=== PATIENT | female | born 1995 | race Asian ===

== ENCOUNTER 2016-12-15 18:07 | Emergency (ER) | payer BC, OTHER ==
[2016-12-15] MEDS ORDERED: Sodium Chloride 0.9% 1,000 ML IV ONE (18:56)
--- NOTE | 2016-12-15 19:01 | ED Physician Chart ---
Chief Complaint/HPI - Patient Information Date Seen:: 12/15/16 Time Seen:: 18:57 Chief Complaint:: cough History of Present Illness:: pt prefers name "JOSE DANIEL" pt from [place]..due to start college today at [employer]..anxious. had a cough all nt last nt w some yellow mucous assoc. coughs to point of vomit paroxysms. no abd pain. chest wall muscles sore from cough. no asthma hx. no recent prolonged travel. no leg edema or pain. pos clear rhinitis. no fever. 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 no other ysabel pmh. Allergies:: Allergies Allergy/AdvReac Type Severity Reaction Status Date / Time Penicillins [PCN] Allergy Verified 12/15/16 18:28 Vitals:: Vital Signs - 8 hr 12/15/16 18:20 Temp 97.6 F HR 123 RR 16 BP 106/73 O2 Sat % 95 Historian:: Patient Review of Systems - Review of Systems General/Constitutional: No fever, No chills, No weight loss, No weakness, No diaphoresis, No edema, No loss of appetite Skin: No skin lesions, No rash, No bruising Head: No headache, No light-headedness Eyes: No loss of vision, No pain, No diplopia ENT: No earache, Nasal drainage, No sore throat, No tinnitus Neck: No neck pain, No swelling, No thyromegaly, No stiffness, No mass noted Cardio Vascular: No chest pain, No palpitations, No PND, No orthopnea, No edema Pulmonary: SOB, Cough, No sputum, No wheezing GI: No nausea, No vomiting, No diarrhea, No pain, No melena, No hematochezia, No constipation, No hematemesis G/U: No dysuria, No frequency, No hematuria Musculoskeletal: No bone or joint pain, No back pain, No muscle pain Endocrine: No polyuria, No polydipsia Psychiatric: No prior psych history, No depression, No anxiety, No suicidal ideation Hematopoietic: No bruising, No lymphadenopathy Allergic/Immuno: No urticaria, No angioedema Neurological: No syncope, No focal symptoms, No weakness, No paresthesia, No headache, No seizure, No dizziness, No confusion, No vertigo Past Medical History - Past Medical History Past Medical History: Other (hx of uterine ca (see hpi)) Social History: Single Surgical History: None Medication: Reviewed Family Medical History - Family Member Mother Other Medical History: denies family medical history Physical Exam - Physical Examination General/Constitutional: Awake, Well-developed, well-nourished, Alert, No distress, GCS 15, Non-toxic appearing, Ambulatory Other Gen/Cons comments:: hr =120s. pt seems calm. lungs sound clear. wn/wh. Head: Atraumatic Eyes: Lids, conjuctiva normal, PERRL, EOMI Skin: Nl inspection, No rash, No skin lesions, No ecchymosis, Well hydrated, No lymphadenopathy ENMT: External ears, nose nl, Nasal exam nl, Lips, teeth, gums nl Neck: Nontender, Full ROM w/o pain, No JVD, No nuchal rigidity, No bruit, No mass, No stridor Respiratory: Nl effort/Exclusion, Clear to Auscultation, No Wheeze/Rhonchi/Rales Cardio Vascular: RRR, No murmur, gallop, rubs, NL S1 S2 GI: No tenderness/rebounding/guarding, No organomegaly, No hernia, Normal BS's, Nondistended, No mass/bruits, No McBurney tenderness : No CVA tenderness Extremities: No tenderness or effusion, Full ROM, normal strength in all extremities, No edema, Normal digits & nails Other Extremities comments:: no chris sx. no leg edema or tndrness. Neuro/Psych: Alert/oriented, DTR's symmetric, Normal sensory exam, Normal motor strength, Judgement/insight normal, Mood normal, Normal gait, No focal deficits Misc: normal gait, Normal back, No paraspinal tenderness Labs/Radiology/EKG Results - Lab Results Results: Laboratory Tests 12/15/16 12/15/16 12/15/16 19:18 19:18 19:18 WBC 16.8 H RBC 5.14 H Hgb 15.7 H Hct 46.3 H MCV 90.1 MCH 30.6 MCHC Differential 34.0 RDW 13.0 Plt Count 258 MPV 7.5 Neutrophils % 89.3 H Lymphocytes % 5.3 L Monocytes % 3.1 Eosinophils % 1.2 Basophils % 1.1 D-Dimer 180 Sodium 134 L Potassium 3.9 Chloride 104 Carbon Dioxide 25.4 Anion Gap 8.5 BUN 10 Creatinine 0.6 Est GFR ( Amer) > 60.0 Est GFR (Non-Af Amer) > 60.0 BUN/Creatinine Ratio 16.7 Glucose 114 H Whole Bld Lactic Acid Calcium 9.9 Total Bilirubin 1.8 H AST 15 ALT 13 Alkaline Phosphatase 57 Troponin I < 0.01 L Total Protein 8.5 H Albumin 5.0 Globulin 3.5 Albumin/Globulin Ratio 1.4 Urine Test Urine Opiates Screen Ur Barbiturates Screen Ur Phencyclidine Scrn Amphetamines Screen U Methamphetamines Scrn U Benzodiazepines Scrn U Cocaine Metab Screen U Cannabinoids Screen 12/15/16 12/15/16 12/15/16 19:30 20:00 20:00 WBC RBC Hgb Hct MCV MCH MCHC Differential RDW Plt Count MPV Neutrophils % Lymphocytes % Monocytes % Eosinophils % Basophils % D-Dimer Sodium Potassium Chloride Carbon Dioxide Anion Gap BUN Creatinine Est GFR ( Amer) Est GFR (Non-Af Amer) BUN/Creatinine Ratio Glucose Whole Bld Lactic Acid 3.34 H* Calcium Total Bilirubin AST ALT Alkaline Phosphatase Troponin I Total Protein Albumin Globulin Albumin/Globulin Ratio Urine Test NEGATIVE Urine Opiates Screen NEGATIVE Ur Barbiturates Screen NEGATIVE Ur Phencyclidine Scrn NEGATIVE Amphetamines Screen NEGATIVE U Methamphetamines Scrn NEGATIVE U Benzodiazepines Scrn NEGATIVE U Cocaine Metab Screen NEGATIVE U Cannabinoids Screen POSITIVE H - Radiology Results Results: cxr- nad ED Septic Shock - . Is Septic Shock (SBP<90, OR Lactate>4 mmol\\L) present?: No - <6hrs of presentation: Vital Signs: Vital Signs - 8 hr 12/15/16 18:20 Temp 97.6 F HR 123 RR 16 BP 106/73 O2 Sat % 95 Reassessment (Disposition) - Reassessment Reassessment:: despite criteria...pt might be early sepsis. unclear why persistent tachycardia..also high lactic and high wbc w high neutrophils is of concern... precaution of admitting for further obs. mansoor hewitt...will admit. Reassessment Condition:: Improved - Diagnosis Diagnosis:: 1 leukocytosis 2 bronchitis vs very early pneumonia 3 high bilirubin of unknown etiology 4 high lactic acid of uncertain etiology 5 history of uterine ca - Patient Disposition Admitted to:: Med/Surg Condition at Disposition:: Improved
[2016-12-15 19:40] LABS: % BASOPHILS 1.1 % (0.0-2.0); % EOSINOPHILS 1.2 % (0.0-5.0); % LYMPHOCYTES 5.3 % (20.0-50.0); % MONOCYTES 3.1 % (2.0-10.0); % NEUTROPHILS 89.3 % (40.0-80.0); HEMATOCRIT 46.3 % (35.0-45.0); HEMOGLOBIN 15.7 gm/dL (11.7-15.5); MEAN CELL VOLUME 90.1 fl (81-100); MEAN CORPUSCULAR HEMOGLOBIN 30.6 pg (27.0-31.0); MEAN PLATELET VOLUME 7.5 fl; PLATELET COUNT 258 Th/cmm (150-400); RED BLOOD COUNT 5.14 Mil/cmm (3.80-5.10); WHITE BLOOD COUNT 16.8 Th/cmm (4.8-10.8)
[2016-12-15 19:51] LABS: ALB/GLOB RATIO 1.4 (1.0-1.8); ALKALINE PHOSPHATASE 57 U/L (34-104); ANION GAP 8.5 (7.0-16.0); BILIRUBIN,TOTAL 1.8 mg/dL (0.3-1.0); BUN - UREA NITROGEN 10 mg/dL (7-25); BUN/CREATININE RATIO 16.7; CALCIUM SERUM 9.9 mg/dL (8.6-10.3); CARBON DIOXIDE 25.4 mEq/L (21.0-31.0); CHLORIDE 104 mEq/L (98-107); CREATININE - SERUM 0.6 mg/dL (0.6-1.2); GLUCOSE 114 mg/dL (70-105); POTASSIUM SERUM 3.9 mEq/L (3.5-5.1); SGOT 15 U/L (13-39); SGPT/ALT 13 U/L (7-52); SODIUM SERUM 134 mEq/L (136-145)
[2016-12-15 20:38] LABS: AMPHETAMINE URINE NEGATIVE (NEGATIVE); BARBITURATES URINE NEGATIVE (NEGATIVE)
[2016-12-15] MEDS ORDERED: Albuterol/Ipratropium Neb 3 ML AERS HHN ONE ×2 (20:51→20:59)
[2016-12-15] MEDS ORDERED: Levofloxacin 500mg/100mL 500 MG/100 ML BAG IV ONE ×2 (20:53→21:08)
[2016-12-15 21:45] LABS: URINE BACTERIA NONE SEEN /hpf (NONE SEEN); URINE BILIRUBIN NEGATIVE (NEGATIVE); URINE BLOOD NEGATIVE (NEGATIVE); URINE COLOR YELLOW; URINE EPITHELIAL CELLS NONE SEEN /lpf (FEW); URINE GLUCOSE (UA) NEGATIVE (NEGATIVE); URINE KETONE NEGATIVE (NEGATIVE); URINE PH 8.5; URINE PROTEIN NEGATIVE (NEGATIVE); URINE RBC NONE SEEN /hpf (0-5); URINE UROBILINOGEN 0.2 E.U./dL (0.2 - 1.0); URINE WBC NONE SEEN /hpf (0-5)
--- NOTE | 2016-12-16 10:38 | Diagnostic Imaging Report ---
Portable chest x-ray History: Shortness of breath Allowing for portable technique the heart size is normal. No focal pulmonary parenchymal processes. No hilar or mediastinal abnormalities. Impression: No acute abnormalities.
== END 2016-12-15 23:00 | disposition left against medical advice (07) ==
LOC: ER 18:07
DX: D72.829 Elevated white blood cell count, unspecified (principal); E80.7 Disorder of bilirubin metabolism, unspecified; R74.0 Nonspecific elevation of levels of transaminase and lactic acid dehydrogenase [LDH]; Z85.42 Personal history of malignant neoplasm of other parts of uterus; Z88.0 Allergy status to penicillin
CPT/HCPCS: 99285; 96365; 96361; 94640; 71010; 84484; 36415; 85379; 83605 ×2; 80300; 85025; 81001; 81025; 80053; 87040 ×2; J1956; J7030